=== PATIENT | male | born 2005 | race Caucasian/White ===

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

== ENCOUNTER → 2023-05-25 | Outpatient (REF) | payer OTHER ==
[2023-05-25 17:05] LABS: THYROID STIMULATING HORMONE 0.771 uIU/ML (0.48-4.17)
[2023-05-25 17:06] LABS: FREE T4 1.33 NG/DL (0.83-1.43)
[2023-05-25 17:09] LABS: THYROID PEROXIDASE ANTIBODY < 28.0 U/ML (<60.0)
== END ==
LOC: M LABDRAWP 15:19 → M LAB REF 15:19
PROVIDERS: ATTEND Family Medicine
DX: I49.1 Atrial premature depolarization (principal); I49.3 Ventricular premature depolarization

== ENCOUNTER → 2023-07-13 | Outpatient (CLI) | payer OTHER | LOC: M PLAIMG 11:04 | PROVIDERS: ATTEND Orthopaedic Surgery | DX: S43.005A Unspecified dislocation of left shoulder joint, initial encounter (principal); X58.XXXA Exposure to other specified factors, initial encounter; Y92.9 Unspecified place or not applicable; Y93.9 Activity, unspecified; Y99.9 Unspecified external cause status ==